=== PATIENT | female | born 1985 | race African-American/Black ===

== ENCOUNTER 2017-06-21 13:56 | Emergency (ER) | payer OTHER ==
[2017-06-21 14:00] VITALS: BP 121/76; PULSE 101; TEMP 98.8; BMI 35.5
[2017-06-21] MEDS ORDERED: KETOROLAC TROMETHAMINE 60 MG/2 ML VIAL IM ONE (15:10)
[2017-06-21] MEDS ORDERED: diazePAM 5 MG TABLET PO ONE (15:10)
[2017-06-21] MEDS ORDERED: KETOROLAC TROMETHAMINE 30 MG/1 ML VIAL ONE (15:13)
[2017-06-21] MEDS ORDERED: diazePAM 5 MG TABLET ONE (15:13)
--- NOTE | 2017-06-21 15:37 | PDOC ---
History of Present Illness - General Chief Complaint: Back Pain Stated Complaint: LOWER BACK Time Seen by Provider: 06/21/17 14:20 History Source: Patient Exam Limitations: No Limitations - History of Present Illness Initial Comments: 06/21/17 15:31 CHIEF COMPLAINT: Lower back pain HISTORY OF PRESENT ILLNESS: 31-year-old female, presents with right lateral lower back pain was seen in the emergency department of [place] yesterday given Toradol injection and sent home no medication was prescribed Patient still with pain today. Nonradiating pain, no neurosensory deficits, no bowel or bladder difficulty incontinence or urinary retention, no saddle anesthesia, no footdrop. No history of IVDU or history of cancer. Patient denies any trauma. Patient states that she has a very uncomfortable bed and sleeps with 1-year-old is unable to sleep in a normal position. REVIEW OF SYSTEMS: GENERAL: Afebrile, denies any weakness RESPIRATORY: No cough, wheezing, or hemoptysis. CARDIAC: No chest pain or shortness of breath MUSCULOSKELETAL: Pain to generalized lower back. No point tenderness. Pain worse on right than left. SKIN : No erythema, no bruising, no deformity. GI/: Denies any abdominal pain, no urinary difficulty, incontinence or urinary retention. RECTAL: Denies any difficulty this A.m. NEUROLOGICAL: Denies any numbness or tingling. No neurosensory deficits. PHYSICAL EXAM: GENERAL: The patient is awake, alert, and fully oriented, in no acute distress. RESPIRATORY: Lungs clear bilaterally, no rhonchi wheezes or crackles CARDIAC: S1-S2 audible, no murmur rub or gallop MUSCULOSKELETAL: Pain to generalized lower back, pain localized to right lateral lower back. Nonradiating, no tingling or sensory deficit. Less than 2 second cap refill, +4 popliteal and pedal pulses. GI/: Abdomen soft, nontender, nondistended. No rebound tenderness. No masses palpable. MUSCULOSKELETAL: No spinal point tenderness. Normal reflexive and no deficits to sensation or strength. RECTAL: Normal Rectal Tone. Guaiac negative SKIN: Warm, Dry, normal turgor, no erythema, no edema no bruising. 06/21/17 15:34 Past History - Past Medical History Allergies/Adverse Reactions: Allergies Allergy/AdvReac Type Severity Reaction Status Date / Time amoxicillin [Amoxicillin] Allergy Hives Verified 06/21/17 14:00 shellfish derived Allergy Verified 06/21/17 14:01 Home Medications: Ambulatory Orders Diazepam [Valium] 2 mg PO TID #20 tablet MDD 3 06/21/17 Methylprednisolone [Medrol Dose Shaheed] 4 mg PO ASDIR #21 tablet 06/21/17 Cardiac Disorders: Yes ([place] 03/2014) - Reproductive History (#): 2 Para: 2 Cervical CA: No Dysfunctional Uterine Bleeding: No Ectopic : No Endometrial CA: No Polycystic Ovaries: No Therapeutic (s) & number: Yes (1) Tubal Ligation: No Spontaneous : 0 - Immunization History Immunization Up to Date: Yes - Suicide/Smoking/Psychosocial Hx Smoking History: Current every day smoker Have you smoked in the past 12 months: No Number of Cigarettes Smoked Daily: 10 Information on smoking cessation initiated: No Hx Alcohol Use: Yes (SOCIAL) Drug/Substance Use Hx: No *Physical Exam - Vital Signs Last Vital Signs Temp Pulse Resp BP Pulse Ox 98.8 F 101 H 2 L 121/76 100 06/21/17 13:57 06/21/17 13:57 06/21/17 13:57 06/21/17 13:57 06/21/17 13:57 ED Treatment Course - Medications Given in the ED: ED Medications Discontinued Medications Generic Name Dose Route Start Last Admin Trade Name Victor Manuel PRN Reason Stop Dose Admin Diazepam 5 mg 06/21/17 15:10 06/21/17 15:20 Valium - PO 06/21/17 15:11 5 mg ONCE ONE Administration Ketorolac Tromethamine 60 mg 06/21/17 15:10 06/21/17 15:20 Toradol Injection - IM 06/21/17 15:11 60 mg ONCE ONE Administration Medical Decision Making - Medical Decision Making 06/21/17 15:34 A/P: Patient here for evaluation of low back pain. Patient with right lateral lower back pain and spasm, was seen in the ER yesterday at [facility] given Toradol states she felt better upon discharge however was not given any medication post discharge once the medication wore off patient with increased pain. Patient denies any trauma states that she went to bend down to get a pepper out of the refrigerator and pain exacerbated had back pain because her bed is uncomfortable. Plan while in emergency department, Toradol 60 mg IM, Valium 5 mg by mouth. Patient states some relief. We'll discharge patient home on Medrol Dosepak and Valium, follow-up with orthopedics. No heavy lifting greater than 10 pounds I discussed the physical exam findings, ancillary test results and final diagnoses with the patient. I answered all of the patient's questions. The patient was satisfied with the care received and felt comfortable with the discharge plan and treatment plan. The patient will call to arrange follow-up and will return to the Emergency Department with any new, persistent or worsening symptoms. 06/21/17 15:41 *DC/Admit/Observation/Transfer Diagnosis at time of Disposition: Low back pain Qualifiers: Chronicity: acute Back pain laterality: right Sciatica presence: with sciatica Sciatica laterality: sciatica of right side Qualified Code(s): M54.41 - Lumbago with sciatica, right side - Discharge Dispostion Disposition: HOME Condition at time of disposition: Improved Admit: No - Prescriptions Prescriptions: Methylprednisolone [Medrol Dose Shaheed] 4 mg PO ASDIR #21 tablet Diazepam [Valium] 2 mg PO TID #20 tablet MDD 3 - Referrals Referrals: Ricarda Winkler [Primary Care Provider] - - Patient Instructions Printed Discharge Instructions: DI for Low Back Pain Additional Instructions: 1. Please return to the emergency department with any numbness, tingling, weakness, numbness or tingling to groin or legs, or loss of bowel or bladder function. 2. Use pain medication as ordered. 3. Please is to followup in the office of Dr. West for evaluation within a week if no improvement. 4. Ice or heat 5. Refrain from lifting anything above 10 pounds, until pain resolved. - Post Discharge Activity Forms/Work/School Notes: Back to School
== END 2017-06-21 15:39 | disposition home or self-care (01) ==
LOC: JERFT 13:56
PROC: 3E0233Z Introduction of Anti-inflammatory into Muscle, Percutaneous Approach (ICD-10-PCS; principal; 2017-06-21)
DX: M54.41 Lumbago with sciatica, right side (principal); I25.2 Old myocardial infarction; F17.210 Nicotine dependence, cigarettes, uncomplicated
CPT/HCPCS: 96372; 99281-25

== ENCOUNTER → 2018-06-07 | Day surgery (SDC) | payer OTHER ==
--- NOTE | 2018-06-12 11:50 | PATH ---
Cytology Non-Gynecological Report Patient Name: RAFAEL TURCIOS [facility]. Rec. #: [id number] /Age/Gender: 1985 (Age: 32) / F Account: [id number] Location: RADIOLOGY INTER Taken: 06/07/2018 Received: 06/07/2018 Reported: 06/11/2018 Physicians: Pelon Hamilton M.D. Specimen(s) Received LEFT LOBE Clinical History Left thyroid Nodule, 5.03 x 4.36 x 3.60 cm Final Diagnosis THYROID, LEFT, FINE NEEDLE ASPIRATION: SATISFACTORY FOR EVALUATION. BETHESDA CLASS II: BENIGN. CYTOLOGIC FINDINGS ARE CONSISTENT WITH A BENIGN FOLLICULAR NODULE. SMALL FOLLICULAR CELLS WITH FOCAL REACTIVE CHANGES, ABUNDANT COLLOID AND SCATTERED HEMOSIDERIN-LADEN MACROPHAGES PRESENT. Electronically Signed Guerita Islas M.D. Gross Description Received are eight direct smears, four of which are air-dried and Diff-Quik stained, and four of which are alcohol fixed and Pap stained. Also received is 20 ml of bloody formalin from which one cellblock is prepared.
== END | disposition home or self-care (01) ==
LOC: JRADIR 09:23
PROVIDERS: ATTEND Otolaryngology
PROC: 0G9G3ZX Drainage of Left Thyroid Gland Lobe, Percutaneous Approach, Diagnostic (ICD-10-PCS; principal; 2018-06-07)
DX: E04.1 Nontoxic single thyroid nodule (principal)
CPT/HCPCS: 76942; 88173; 88305-TC

== ENCOUNTER 2019-12-05 21:02 | Emergency (ER) | payer OTHER ==
[2019-12-05] MEDS ORDERED: KETOROLAC TROMETHAMINE 60 MG/2 ML VIAL IM ONE (21:19)
[2019-12-05 21:21] VITALS: BP 120/77; PULSE 96; TEMP 98.6; BMI 32.2
[2019-12-05] MEDS ORDERED: KETOROLAC TROMETHAMINE 60 MG/2 ML VIAL ONE (21:29)
--- NOTE | 2019-12-06 19:11 | PDOC ---
Documentation entered by Lauryn Guthrie SCRIBE, acting as scribe for Darrel Freed MD. Darrel Freed MD: This documentation has been prepared by the Jerri beatty Torie, SCRIBE, under my direction and personally reviewed by me in its entirety. I confirm that the documentation accurately reflects all work, treatment, procedures, and medical decision making performed by me. History of Present Illness - General Chief Complaint: Pain, Acute Stated Complaint: RT CHEST WALL PAIN Time Seen by Provider: 12/05/19 21:06 History Source: Patient Exam Limitations: No Limitations - History of Present Illness Initial Comments: 12/05/19 21:37 Assessment and plan: This is a 34-year-old female who is 5 to 6 weeks and comes in complaining of right-sided anterior and lateral chest wall pain over the lower portion of her ribs. Patient denies any abdominal pain. There are no other associated symptoms of shortness of breath, cough, congestion. Pain is reproduced on palpation and with movement and use of chest wall muscles.. Patient given Toradol for the pain. Patient discharged home will follow-up with her primary care doctor Past History - Past Medical History Allergies/Adverse Reactions: Allergies Allergy/AdvReac Type Severity Reaction Status Date / Time amoxicillin [Amoxicillin] Allergy Hives Verified 05/19/18 06:12 shellfish derived Allergy Verified 05/19/18 06:12 Home Medications: Ambulatory Orders Cetirizine HCl [Zyrtec -] 10 mg PO DAILY 12/05/19 Loratadine [Claritin] 10 mg PO DAILY 12/05/19 Pnv No.95/Ferrous Fum/Folic AC [ Vitamin Tablet] 1 each PO DAILY 12/05/19 Asthma: (ALLERGIES) Cardiac Disorders: Yes ([place] 03/2014) COPD: No Other medical history: 6 WEEKS - Reproductive History (#): 2 Para: 2 Cervical CA: No Dysfunctional Uterine Bleeding: No Ectopic : No Endometrial CA: No Polycystic Ovaries: No Therapeutic (s) & number: Yes (1) Tubal Ligation: No Spontaneous : 0 - Immunization History Immunization Up to Date: Yes - Psycho Social/Smoking Cessation Hx Smoking History: Current every day smoker Have you smoked in the past 12 months: No Number of Cigarettes Smoked Daily: 4 Information on smoking cessation initiated: Yes Hx Alcohol Use: No Drug/Substance Use Hx: No *Physical Exam - Vital Signs Last Vital Signs Temp Pulse Resp BP Pulse Ox 98.6 F 96 H 18 120/77 99 12/05/19 21:03 12/05/19 21:03 12/05/19 21:03 12/05/19 21:03 12/05/19 21:03 ED Treatment Course - Medications Given in the ED: ED Medications Discontinued Medications Generic Name Dose Route Start Last Admin Trade Name Victor Manuel PRN Reason Stop Dose Admin Ketorolac Tromethamine 60 mg 12/05/19 21:19 12/05/19 21:33 Toradol Injection - IM 12/05/19 21:20 60 mg ONCE ONE Administration Discharge - Discharge Information Problems reviewed: Yes Clinical Impression/Diagnosis: Chest wall pain Condition: Stable Disposition: HOME - Admission No - Follow up/Referral - Patient Discharge Instructions Additional Instructions: For the pain take Tylenol or Motrin as directed on the bottle. Return to the emergency department immediately with ANY new, persistent or worsening symptoms. Continue any medications as previously prescribed by your physician. You should follow up with your primary doctor as soon as possible regarding today's emergency department visit. . Please make sure your doctor reviews the results of your emergency evaluation. Thank you for coming to the Emergency Department today for your care. It was a pleasure to see you today. Please note that your evaluation is INCOMPLETE until you follow-up with your doctor. - Post Discharge Activity
== END 2019-12-05 21:47 | disposition home or self-care (01) ==
LOC: FER 21:02
PROC: 3E0233Z Introduction of Anti-inflammatory into Muscle, Percutaneous Approach (ICD-10-PCS; principal; 2019-12-05)
DX: R07.89 Other chest pain (principal); O26.891 Other specified pregnancy related conditions, first trimester; Z3A.01 Less than 8 weeks gestation of pregnancy; Z88.8 Allergy status to other drugs, medicaments and biological substances; Z91.013 Allergy to seafood; F17.210 Nicotine dependence, cigarettes, uncomplicated; I25.2 Old myocardial infarction
CPT/HCPCS: 96372; 99284-25

== ENCOUNTER 2020-08-14 11:44 | Emergency (ER) | payer OTHER ==
[2020-08-14 12:05] VITALS: BP 141/80; PULSE 100; TEMP 99.7; BMI 33.6
== END 2020-08-14 12:53 | disposition home or self-care (01) ==
LOC: FER 11:44
DX: R05 Cough (principal)
CPT/HCPCS: 99283-25

== ENCOUNTER 2021-03-19 10:03 | Emergency (ER) | payer OTHER ==
[2021-03-19 10:16] VITALS: BP 113/74; PULSE 83; TEMP 99.2; BMI 36.0
== END 2021-03-19 11:32 | disposition home or self-care (01) ==
LOC: FER 10:03
DX: R53.1 Weakness (principal); G47.33 Obstructive sleep apnea (adult) (pediatric)
CPT/HCPCS: 81025; 82962; 99283-25

== ENCOUNTER 2021-04-10 11:29 | Emergency (ER) | payer OTHER ==
[2021-04-10 11:53] VITALS: BP 126/90; PULSE 85; TEMP 98.9; BMI 35.9
[2021-04-10] MEDS ORDERED: IBUPROFEN 400 MG TABLET (FP) PO ONE ×2 (12:03→12:20)
[2021-04-11 14:08] LABS: SARS-CoV-2 NAA Not Detected (Not Detected)
== END 2021-04-10 13:36 | disposition home or self-care (01) ==
LOC: FER 11:29
DX: R07.0 Pain in throat (principal); R50.9 Fever, unspecified; H92.01 Otalgia, right ear
CPT/HCPCS: 84703; 87880; 99283-25; C9803; U0003; U0005

== ENCOUNTER 2021-08-20 10:21 | Emergency (ER) | payer OTHER ==
[2021-08-20 10:28] VITALS: BP 136/84; PULSE 99; TEMP 98.1; BMI 31.3
[2021-08-20 13:05] LABS: EPI CELLS 7 /uL (0-25.1); HYALINE CASTS 0 /uL (0-3.1); PH,URINE 6.5 (5.0-8.0); URINE APPEARANCE CLEAR; URINE BACTERIA 85 /uL (0-1359); URINE BILIRUBIN NEGATIVE (NEGATIVE); URINE COLOR YELLOW; URINE GLUCOSE (UA) NEGATIVE (NEGATIVE); URINE KETONE NEGATIVE (NEGATIVE); URINE LEUK ESTERASE NEGATIVE (NEGATIVE); URINE NITRITE NEGATIVE (NEGATIVE); URINE PROTEIN NEGATIVE (NEGATIVE); URINE RBC 13 /uL (0-23.9); URINE UROBILINOGEN 0.2 mg/dL (0.2-1.0); URINE WBC 4 /uL (0-25.8)
[2021-08-20 13:08] LABS: HCG,QUALITATIVE URINE Negative
== END 2021-08-20 13:00 | disposition left against medical advice (07) ==
LOC: JER 10:21
DX: N93.9 Abnormal uterine and vaginal bleeding, unspecified (principal)
CPT/HCPCS: 81003; 84703; 87086; 99283-25

== ENCOUNTER 2022-11-08 09:11 | Emergency (ER) | payer OTHER ==
[2022-11-08 09:22] VITALS: RESP 16; BMI 32.8
[2022-11-08] MEDS ORDERED: SUCRALFATE 1 GM/10 ML UNIT DOSE CUPS PO STA (09:42)
[2022-11-08] MEDS ORDERED: MAG HYDROX/AL HYDROX/SIMETH -MYLANTA- ORAL SUSPENSION PO ONE (09:42)
[2022-11-08] MEDS ORDERED: SIMETHICONE 40 MG/0.6 ML BOTTLE PO ONE (09:42)
[2022-11-08] MEDS ORDERED: FAMOTIDINE 20 MG/50 ML IVPB 20 MG/50 ML MG IVPB ONE ×2 (09:43→09:47)
[2022-11-08] MEDS ORDERED: NITROGLYCERIN SUBLINGUAL 1/200 0.3 MG BTL SL ONE (09:47)
[2022-11-08] MEDS ORDERED: SUCRALFATE 1 GM/10 ML UNIT DOSE CUPS ONE (09:47)
[2022-11-08] MEDS ORDERED: SIMETHICONE 80 MG TAB.CHEW (FP) ONE (09:47)
[2022-11-08] MEDS ORDERED: MAG HYDROX/AL HYDROX/SIMETH 30 ML UNIT-DOSE CUP ONE (09:48)
[2022-11-08] MEDS ORDERED: NITROGLYCERIN SUBLINGUAL 1/150 0.4 MG TAB ONE (09:49)
[2022-11-08] MEDS ORDERED: NITROGLYCERIN SUBLINGUAL 1/150 0.4 MG TAB SL ONE (09:50)
[2022-11-08] MEDS ORDERED: SIMETHICONE 80 MG TAB.CHEW (FP) PO ONE (09:51)
[2022-11-08] MEDS ORDERED: SODIUM CHLORIDE 0.9% 1000 ML INFUS.BAG IV ONE (10:12)
[2022-11-08 10:31] LABS: HEMATOCRIT 40.4 % (32.4-45.2); HEMOGLOBIN 13.7 G/dL (10.7-15.3); MCH 30.9 pg (25.7-33.7); MCHC 33.8 g/dl (32.0-36.0); MEAN CELL VOLUME 91.3 fl (80-96); MEAN PLT VOLUME 8.6 fl (7.5-11.1); PLATELET COUNT 201.6 10^3/uL (134-434); RBC 4.42 10^6/uL (3.60-5.2); RDW 13.5 % (11.6-15.6); WHITE BLOOD COUNT 8.6 10^3/uL (4.0-10.8)
[2022-11-08 10:34] LABS: ALBUMIN 3.6 g/dl (3.4-5.0); ALK PHOS 60 U/L (45-117); ANION GAP 8 MMOL/L (8-16); BILIRUBIN,TOTAL 0.9 mg/dl (0.2-1); CALCIUM 9.1 mg/dl (8.5-10); CHLORIDE 104 mmol/L (98-107); CO2 24 mmol/L (21-32); CREATININE 0.9 mg/dl (0.55-1.3); GLUCOSE,RANDOM 86 mg/dl (74-106); SGOT/AST 19 U/L (15-37); SGPT/ALT 15 U/L (13-61); SODIUM 136 mmol/L (136-145); TOT PROT 6.9 g/dl (6.4-8.2)
[2022-11-08 11:18] VITALS: BP 106/51; PULSE 81; TEMP 98.4
== END 2022-11-08 12:02 | disposition home or self-care (01) ==
LOC: FER 09:11
PROC: 3E033GC Introduction of Other Therapeutic Substance into Peripheral Vein, Percutaneous Approach (ICD-10-PCS; principal; 2022-11-08)
DX: R07.9 Chest pain, unspecified (principal)
CPT/HCPCS: 36415; 71275-TC; 74174-TC; 80053; 81003; 81025; 84484; 85027; 87086; 93005; 99285-25; Q9967

== ENCOUNTER 2023-12-09 11:35 | Emergency (ER) | payer OTHER ==
[2023-12-09 12:00] VITALS: BP 135/108; PULSE 96; RESP 20; TEMP 99; BMI 32.8
[2023-12-09] MEDS ORDERED: IBUPROFEN 600 MG TABLET (FP) PO ONE (12:31)
[2023-12-09] MEDS: IBUPROFEN 600 MG TABLET (FP) PO ONE (12:32)
== END 2023-12-09 13:19 | disposition home or self-care (01) ==
LOC: FER 11:35
DX: M25.561 Pain in right knee (principal)
CPT/HCPCS: 73562-TC-RT-FY; 99283-25

== ENCOUNTER 2024-10-18 17:45 | Emergency (ER) | payer OTHER ==
[2024-10-18 17:59] VITALS: BP 129/68; PULSE 87; RESP 18; TEMP 98; BMI 23.5
[2024-10-18] MEDS ORDERED: ACETAMINOPHEN 325 MG TABLET (FP) ONE (18:42)
[2024-10-18] MEDS: ACETAMINOPHEN 325 MG TABLET (FP) PO ONE (19:02)
[2024-10-18 19:05] LABS: BASO % 0.4 % (0-2.0); EOS % 1.2 % (0-4.5); HEMATOCRIT 42.3 % (32.4-45.2); HEMOGLOBIN 14.2 GM/dL (10.7-15.3); LYMPH % 20.8 % (8-40); MCH 30.9 pg (25.7-33.7); MCHC 33.6 g/dl (32.0-36.0); MEAN PLT VOLUME 8.3 fl (7.5-11.1); MONO % 6.3 % (3.8-10.2); NEUT % 71.3 % (42.8-82.8); PLATELET COUNT 223 10^3/uL (134-434); RDW 13.4 % (11.6-15.6); WHITE BLOOD COUNT 8.1 K/mm3 (4.0-10.0)
[2024-10-18 19:18] LABS: INR 1.01 (0.83-1.09); PROTHROMBIN TIME (PATIENT) 11.6 SEC (9.7-13.0)
[2024-10-18 19:21] LABS: ACTIVATED PTT 31.2 SECONDS (25.2-36.5)
[2024-10-18 19:30] LABS: ALBUMIN 3.6 g/dl (3.4-5.0); BLOOD UREA NITROGEN 10.1 mg/dL (7-18); CALCIUM 9.2 mg/dL (8.5-10.1); MAGNESIUM 2.2 mg/dL (1.8-2.4)
[2024-10-18 19:33] LABS: CREATININE 0.9 mg/dL (0.55-1.3)
[2024-10-18 19:35] LABS: BILIRUBIN,TOTAL 0.3 mg/dL (0.2-1); TOT PROT 7.5 g/dl (6.4-8.2)
[2024-10-18] MEDS ORDERED: FAMOTIDINE 20 MG/50 ML IVPB 50 ML IVPB ONE (19:56)
[2024-10-18] MEDS ORDERED: LIDOCAINE 5% TOPICAL PATCH ONE (20:07)
[2024-10-18] MEDS ORDERED: FAMOTIDINE 20 MG/50 ML IVPB 20 MG/50 ML MG IVPB ONE (20:08)
[2024-10-18] MEDS: LIDOCAINE 5% TOPICAL PATCH TP ONE (20:22)
[2024-10-18] MEDS: FAMOTIDINE 20 MG/50 ML IVPB 20 MG/50 ML MG IVPB ONE (20:23)
[2024-10-18 21:16] LABS: PH,URINE 6.5 (5.0-8.0); URINE APPEARANCE CLEAR; URINE BILIRUBIN NEGATIVE (NEGATIVE); URINE COLOR YELLOW; URINE GLUCOSE (UA) NEGATIVE (NEGATIVE); URINE KETONE TRACE (NEGATIVE); URINE LEUK ESTERASE NEGATIVE (NEGATIVE); URINE NITRITE NEGATIVE (NEGATIVE); URINE PROTEIN NEGATIVE (NEGATIVE)
[2024-10-18 21:19] LABS: HCG,QUALITATIVE URINE Negative
[2024-10-18] MEDS ORDERED: KETOROLAC TROMETHAMINE 30 MG/1 ML VIAL ONE (21:20)
[2024-10-18] MEDS: KETOROLAC TROMETHAMINE 30 MG/1 ML VIAL IVPUSH ONE (21:22)
[2024-10-19] MEDS ORDERED: LIDOCAINE PATCH REMOVAL MC SCH (08:00)
== END 2024-10-18 21:41 | disposition home or self-care (01) ==
LOC: JER 17:45
PROC: 3E033GC Introduction of Other Therapeutic Substance into Peripheral Vein, Percutaneous Approach (ICD-10-PCS; principal; 2024-10-18)
PROC: 3E0333Z Introduction of Anti-inflammatory into Peripheral Vein, Percutaneous Approach (ICD-10-PCS; 2024-10-18)
DX: R07.9 Chest pain, unspecified (principal)
CPT/HCPCS: 36415; 71045-TC-FY; 80053; 81003; 83735; 84484; 84703; 85025; 85610; 85730; 93005; 93010; 99285-25